=== PATIENT | female | born 1970 ===

== ENCOUNTER 2017-12-18 10:14 | Emergency (ER) | payer MEDICARE ==
--- NOTE | 2017-12-18 10:55 | Emergency Department Report ---
ED Abdominal Pain HPI - General Chief Complaint: Nausea/Vomiting/Diarrhea Stated Complaint: N/V Time Seen by Provider: 12/18/17 10:38 Source: patient, EMS Mode of arrival: Stretcher Limitations: No Limitations - History of Present Illness Initial Comments: Ms. Veronica is a 47-year-old female with history of hypertension and insulin- dependent diabetes. She is a patient of [facility]. She has had nausea and vomiting the last 6 days. She able to tolerate fluids. However she regurgitates solid foods. She was told last week at outside hospital that she had gastroparesis. She was admitted for similar complaints. She is a patient of [facility] due to suicide attempt after discharge. She is currently not taking any antiemetics. She was taking Ambien and Xanax for the last several days. Xanax was discontinued today. - Related Data Previous Rx's Medication Instructions Recorded Last Taken Type Ondansetron [Zofran Odt] 4 mg PO Q8HR 3 Days #9 tab.rapdis 12/18/17 Unknown Rx Allergies Allergy/AdvReac Type Severity Reaction Status Date / Time morphine AdvReac Vomiting Verified 12/18/17 10:41 ED Review of Systems ROS: Stated complaint: N/V Other details as noted in HPI Comment: All other systems reviewed and negative Constitutional: denies: fever, malaise Respiratory: denies: cough Cardiovascular: denies: chest pain Gastrointestinal: denies: abdominal pain ED Past Medical Hx - Past Medical History Hx Hypertension: Yes Hx Diabetes: Yes Hx of Cancer: Yes (Cervical) - Surgical History Past Surgical History?: Yes Hx Breast Surgery: Yes (Reduction) Additional Surgical History: C- Section,. cervicectomy and hystrorectomy - Social History Smoking Status: Never Smoker - Medications Home Medications: Home Medications Medication Instructions Recorded Confirmed Last Taken Type Ondansetron [Zofran Odt] 4 mg PO Q8HR 3 Days #9 tab.rapdis 12/18/17 Unknown Rx ED Physical Exam - General Limitations: No Limitations General appearance: alert, in no apparent distress - Head Head exam: Present: atraumatic, normocephalic - Eye Eye exam: Present: normal appearance - ENT ENT exam: Present: mucous membranes moist - Neck Neck exam: Present: normal inspection - Respiratory Respiratory exam: Present: normal lung sounds bilaterally. Absent: respiratory distress, wheezes - Cardiovascular Cardiovascular Exam: Present: regular rate, normal rhythm. Absent: systolic murmur, diastolic murmur, rubs, gallop - GI/Abdominal GI/Abdominal exam: Present: soft, normal bowel sounds. Absent: distended, tenderness, guarding, rebound - Extremities Exam Extremities exam: Present: normal inspection - Back Exam Back exam: Present: normal inspection - Neurological Exam Neurological exam: Present: alert, oriented X3 - Psychiatric Psychiatric exam: Present: depressed, flat affect - Skin Skin exam: Present: warm, dry, intact, normal color. Absent: rash ED Course Vital Signs 12/18/17 10:27 Temperature 97.9 F Pulse Rate 81 Respiratory 16 Rate Blood Pressure 137/70 O2 Sat by Pulse 99 Oximetry ED Medical Decision Making - Lab Data Result diagrams: 12/18/17 10:57 12/18/17 10:57 - Medical Decision Making Ms. Veronica presents with nausea and vomiting. She able to tolerate liquids but not solid foods. Upon clarification, she states that the solid food will down. However, she does not feel like eating. NO indication of GI tract obstruction. Last bowel movement occurred 2 days ago. I suspect mild ileus due to opioid use and multiple new medications. She is currently taking [place] Tree 7.5/325 for chronic back pain. Mild withdrawal from xanax will also cause stomach upset. I did consider reglan therapy. However, for some reason, she was not discharged with this medicine after hospital discharge last week. I will prescribed Zofran as needed. I recommended that she stops taking [place] until she feels better. She agreed to do so. She did have acute or chronic kidney injury exacerbated by decrease by mouth intake. This was addressed with 2 L IV fluid therapy. Patient felt much better after receiving treatment in the ED. Critical care attestation.: If time is entered above; I have spent that time in minutes in the direct care of this critically ill patient, excluding procedure time. ED Disposition Clinical Impression: Nausea, Dehydration, Acute kidney injury Disposition: [id number]/TX-[id number] ANOTHER TYPE HLTHCARE Is pt being admited?: No Does the pt Need Aspirin: No Condition: Stable Instructions: Acute Nausea and Vomiting (ED), Ileus (ED) Prescriptions: Ondansetron [Zofran Odt] 4 mg PO Q8HR 3 Days #9 tab.terriedis Time of Disposition: 16:41
[2017-12-18] MEDS ORDERED: NACL 0.9% 1000 ML 1,000 ML IV ONE ×3 (11:04→13:59)
[2017-12-18 11:16] LABS: Basophils % (Auto) 0.2 % (0.0-1.8); Eosinophils % (Auto) 0.1 % (0.0-4.3); Hematocrit 35.4 % (30.3-42.9); Hemoglobin 12.1 gm/dl (10.1-14.3); Lymphocytes # (Auto) 1.7 K/mm3 (1.2-5.4); Lymphocytes % (Auto) 14.9 % (13.4-35.0); Mean Corpuscular HGB Conc 34 % (30-34); Mean Corpuscular Hemoglobin 30 pg (28-32); Mean Corpuscular Volume 87 fl (79-97); Monocytes # (Auto) 0.8 K/mm3 (0.0-0.8); Monocytes % (Auto) 7.3 % (0.0-7.3); Platelet Count 364 K/mm3 (140-440); Red Blood Count 4.09 M/mm3 (3.65-5.03); Red Cell Distribution Width 14.6 % (13.2-15.2)
[2017-12-18 11:34] LABS: Calcium 9.3 mg/dL (8.4-10.2)
[2017-12-18 16:56] VITALS: BP 96/62
== END 2017-12-18 16:58 | disposition other institution (70) ==
LOC: ED 10:14
DX: E86.0 Dehydration (principal); N17.9 Acute kidney failure, unspecified; I10 Essential (primary) hypertension; E11.9 Type 2 diabetes mellitus without complications; Z90.710 Acquired absence of both cervix and uterus; Z90.89 Acquired absence of other organs; Z88.5 Allergy status to narcotic agent
CPT/HCPCS: 36415; 80048; 82962; 85025; 96360; 96361; 99284; J7030